=== PATIENT | male | born 1970 | race Caucasian/White ===

== ENCOUNTER 2025-04-22 13:14 | Day surgery (SDC) | payer BC ==
[~2025-04-22] VITALS: Ht 170.2 cm; Wt 81.2 kg
[2025-04-22] VITALS (14 sets, daily range): BP systolic 95–133; BP diastolic 68–97
[~2025-04-22 13:14] MED LIST: Crestor40 MG PO
--- NOTE | 2025-04-22 13:49 | NUR ---
Ambulatory in Day Surgery History, Chart, Medications and Allergies reviewed before start of procedure. Pre-Op teaching done. Pt verbalizes understanding. Patient States Post-Procedure ride home has been arranged.
--- NOTE | 2025-04-22 14:21 | NUR ---
04/22/25 1421 Howard Beckwith CONFIRMED AND REVIEWED H&P, MEDCICATIONS, ALLERGIES, MEDICAL HISTORY, RESPIRATORY HISTORY, VITAL SIGNS, 3-LEAD EKG, CONSENTS, AND PHYSICIAN ORDERS. PATIENT CONFIRMS NPO STATUS AND AGREES WITH SCHEDULED PROCEDURE. MONITOR INTACT WITH CONTINUOUS PULSE OXIMETRY, CAPNOGRAPHY, 3-LEAD EKG, INTERMITTENT BP. SUPPLEMENTAL O2 TO BE TITRATED THROUGHOUT PROCEDURE TO MAINTAIN O2 SATURATION ABOVE 90%. PATIENT DETERMINED TO BE ASA APPROPRIATE FOR PROPOFOL SEDATION PRIOR TO START OF PROCEDURE BY DR. FREED.
[2025-04-22] MEDS ORDERED: Midazolam HCl 1MG / ML 2ML Vial ONE (14:30)
--- NOTE | 2025-04-22 15:09 | NUR ---
WRITTEN AND VERBAL D/C INSTUCTIONG GIVEN TO PATIENT, VERBALIZED UNDERSTANDING.
== END 2025-04-22 15:18 | disposition home or self-care (01) ==
LOC: ORSCMMR 13:14 → ORD 14:15 → ORSCMMR 14:15
PROVIDERS: Internal Medicine Gastroenterology
PROC: 0DJD8ZZ Inspection of Lower Intestinal Tract, Via Natural or Artificial Opening Endoscopic (ICD-10-PCS; principal; 2025-04-22 14:15)
DX: Z12.11 Encounter for screening for malignant neoplasm of colon (principal); Z86.0100 Personal history of colon polyps, unspecified; E78.00 Pure hypercholesterolemia, unspecified; Z79.899 Other long term (current) drug therapy
CPT/HCPCS: J2250; J2704; J7120